=== PATIENT | female | born 1940 | race Caucasian/White ===

== ENCOUNTER 2016-09-20 08:53 | Day surgery (SDC) | payer MEDICARE, OTHER ==
--- NOTE | ~2016-09-20 | EGD ---
EGD REPORT [facility] [address] [address] NAME: ANGELINE LEDESMA : [birth year] [place]US [place] [facility] [place] [id number] AGE: 76 ADM/REG DATE : 09/20/16 MR#: [id number] REPORT SERV DATE: 09/20/16 DICTATED BY: CARLITO OWEN DATE: 09/20/16 REPORT STATUS : Draft [facility]ANS[facility]IB[facility] BY: [facility] DATE: 09/20/16 Endoscopy Center Patient Name: Angeline Ledesma Date of : 1940 Attending MD: CARLITO OWEN MD Procedure Date No Time: 09/20/2016 Procedure: Colonoscopy Indications: High risk colon cancer surveillance: Personal history of colon cancer Referring MD: NANCY CONRAD, PAPO YOUSSEF III, MD, TYRESE CORNEJO Medicines: Monitored Anesthesia Care Complications: No immediate complications. Procedure: Pre-Anesthesia Assessment: - ASA Grade Assessment: II - A patient with mild systemic disease. After I obtained informed consent, the scope was passed under direct vision. Throughout the procedure, the patient's blood pressure, pulse, and oxygen saturations were monitored continuously. The PCF [id number] was introduced through the anus and advanced to the ileocolonic anastomosis. The colonoscopy was performed without difficulty. The patient tolerated the procedure well. The quality of the bowel preparation was good. Findings: The digital rectal exam was normal. Pertinent negatives include no palpable rectal lesions. The max-terminal ileum appeared normal. Hemorrhoids were found during retroflexion and were moderate. thickened fold at the anastomosis. Biopsies were taken with a cold forceps for histology. Impression: - The examined portion of the ileum was normal. - Hemorrhoids. Recommendation: - Patient has a contact number available for emergencies. The signs and symptoms of potential delayed complications were discussed with the patient. Return to normal activities tomorrow. Written discharge instructions were provided to the patient. - Regular diet. - Continue present medications. - Repeat colonoscopy in 3 years for surveillance. - Return to GI clinic PRN. EGD REPORT [facility] [address] [place]. [address] NAME: ANGELINE LEDESMA NOVEMBER : [birth year] [place] [facility] [place]#: [id number] AGE: 76 ADM/REG DATE : 09/20/16 MR#: [id number] REPORT SERV DATE: 09/20/16 DICTATED BY: CARLITO OWEN DATE: 09/20/16 REPORT STATUS : Draft TRANSCRIBED BY: [employer] DATE: 09/20/16 - Await pathology results. Procedure Code(s): --- Professional --- 16099, Colonoscopy, flexible, proximal to splenic flexure; diagnostic, with or without collection of specimen(s) by brushing or washing, with or without colon decompression (separate procedure) Diagnosis Code(s): --- Professional --- K64.9, Unspecified hemorrhoids Z85.038, Personal history of other malignant neoplasm of large intestine CPT copyright 2013 [employer]. All rights reserved. The codes documented in this report are preliminary and upon supervisor malted milk review may be revised to meet current compliance requirements. CARLITO OWEN MD 09/20/2016 10:44 AM This report has been signed electronically. Number of Addenda: 0 Note Initiated On: 09/20/2016 10:19 AM Scope Withdrawal Time 0 hours 8 minutes 19 seconds [address] [place] [address]
[~2016-09-20 08:53] MED LIST: AFRIN15 NAS; ALLEGRA180 PO; BYSTOLIC5 MG PO; CALCIUM/VIT D PO; CENTRUM PO; CORRECTOL PO; CYANO1000T PO; CYTO5 PO; ESTRACE1 MG PO; HALF81 PO; IMOD PO; LEVOTHROID112 MCG PO; MAALOX PO; MYLANTA ULTR1 TAB PO; NIACOR500 MG PO; OTC PROBIOTIC PO; OTC VITAMIN B-12 PO; PEP20 PO; PROTONIX PO; SYN112 PO
== END 2016-09-20 23:59 | disposition home health service (06) ==
LOC: DMU 08:53
PROVIDERS: Internal Medicine Gastroenterology
PROC: 0DBB8ZX Excision of Ileum, Via Natural or Artificial Opening Endoscopic, Diagnostic (ICD-10-PCS; principal; 2016-09-20 10:30)
DX: K64.9 Unspecified hemorrhoids (principal); I10 Essential (primary) hypertension; E03.9 Hypothyroidism, unspecified; Z85.038 Personal history of other malignant neoplasm of large intestine
CPT/HCPCS: 88305